=== PATIENT | male | born 1950 | race Hispanic/Latino ===

== ENCOUNTER 2017-09-18 00:51 | Emergency (ER) | payer OTHER, MEDICARE ==
[2017-09-18 01:24] VITALS: BP 141/85
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
== END 2017-09-18 06:16 | disposition home or self-care (01) ==
LOC: ED 00:51
DX: S39.012A Strain of muscle, fascia and tendon of lower back, initial encounter (principal); S16.1XXA Strain of muscle, fascia and tendon at neck level, initial encounter; V49.49XA Driver injured in collision with other motor vehicles in traffic accident, initial encounter; Y92.488 Other paved roadways as the place of occurrence of the external cause; Y93.89 Activity, other specified; Y99.8 Other external cause status
CPT/HCPCS: 72040; 72100; 82962; 99283

== ENCOUNTER 2019-09-24 16:12 | Emergency (ER) | payer MEDICARE ==
[2019-09-24 17:17] VITALS: BP 165/89
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
== END 2019-09-24 17:16 | disposition left against medical advice (07) ==
LOC: ED 16:12
DX: Z01.83 Encounter for blood typing (principal)
CPT/HCPCS: 99281